=== PATIENT | female | born 1965 | race American Indian/Alaskan Native ===

== ENCOUNTER 2016-09-07 10:13 | Outpatient (CLI) | payer BC ==
--- NOTE | 2016-09-07 11:46 | Mammography Report ---
Bilateral mammogram: No previous studies available. CAD study utilized. Findings: Bilateral dense breast parenchyma. No mass or microcalcification. Focal dense asymmetry upper anterior left breast. Focal calcification right axilla. Appears to be benign. Impression: Focal asymmetry upper left breast. Comparison with previous studies is recommended. If previous studies are not available, sonographic examination and if necessary, spot magnification views is advised.
== END 2016-09-07 10:14 | disposition home or self-care (01) ==
LOC: MAMMO 10:13
PROVIDERS: ATTEND Obstetrics & Gynecology
DX: Z12.31 Encounter for screening mammogram for malignant neoplasm of breast (principal)
CPT/HCPCS: 77067; G0202

== ENCOUNTER 2016-09-18 10:05 | Outpatient (CLI) | payer BC ==
--- NOTE | 2016-09-18 10:59 | Mammography Report ---
Spot compression magnification and 90degree lateral of density upper left breast followed by sonographic examination upper left breast: Findings: There appears to be effacement of the density on the spot compression magnification view and 90 degree lateral. There is no distinct mass or microcalcification seen. Sonographic examination does not reveal cystic or solid mass in the region of the density however there is a small cyst measuring 0.6 x 0.3 cm in diameter identified at 12:00 position. Impression: Benign findings. Annual follow up mammogram recommended. BI-RADS CATEGORY: 2 = Benign ACR BI-RADS MAMMOGRAPHIC CODES: 0 = Needs additional imaging evaluation; 1 = Negative; 2 = Benign; 3 = Probably benign; 4 = Suspicious; 5 = Malignant; 6 = Known biopsy-proven malignancy COMMENT: 1. Dense breast tissue, i.e., adenosis, fibrocystic changes, etc., may obscure an underlying neoplasm. 2. Approximately 10% of cancers are not detected with mammography. 3. A negative mammography report should not delay biopsy if a clinically suspicious mass is present.
--- NOTE | 2016-09-23 11:09 | Ultrasound Report ---
Spot compression magnification and 90 degree lateral of density upper left breast followed by sonographic examination upper left breast: Findings: There appears to be effacement of the density on the spot compression magnification view and 90 degree lateral. There is no distinct mass or microcalcification seen. Sonographic examination does not reveal cystic or solid mass in the region of the density however there is a small cyst measuring 0.6 x 0.3 cm in diameter identified at 12:00 position. Impression: Benign findings. Annual follow up mammogram recommended. BI-RADS CATEGORY: 2 = Benign ACR BI-RADS MAMMOGRAPHIC CODES: 0 = Needs additional imaging evaluation; 1 = Negative; 2 = Benign; 3 = Probably benign; 4 = Suspicious; 5 = Malignant; 6 = Known biopsy-proven malignancy COMMENT: 1. Dense breast tissue, i.e., adenosis, fibrocystic changes, etc., may obscure an underlying neoplasm. 2. Approximately 10% of cancers are not detected with mammography. 3. A negative mammography report should not delay biopsy if a clinically suspicious mass is present. Transcribed By: PTP Dictated By: CHON LI MD Electronically Authenticated By: CHON LI MD Signed Date/Time: 09/18/16 9159
== END 2016-09-18 10:06 | disposition home or self-care (01) ==
LOC: MAMMO 10:05
PROVIDERS: ATTEND Obstetrics & Gynecology
DX: N60.02 Solitary cyst of left breast (principal)
CPT/HCPCS: 76642; G0206